=== PATIENT | female | born 1975 | race Caucasian/White ===

== ENCOUNTER 2018-05-10 10:22 | Emergency (ER) | payer OTHER ==
[~2018-05-10] VITALS: Ht 175.3 cm; Wt 95.7 kg
[2018-05-10 10:29] VITALS: BP 148/78; Ht 175.3 cm; Wt 95.7 kg
== END 2018-05-10 11:08 | disposition home or self-care (01) ==
LOC: ED 10:22
DX: J34.89 Other specified disorders of nose and nasal sinuses (principal); H66.90 Otitis media, unspecified, unspecified ear; J02.9 Acute pharyngitis, unspecified